=== PATIENT | male | born 1990 | race Caucasian/White ===

== ENCOUNTER 2025-04-17 01:26 | Emergency (ER) | payer MEDICAID, SELFPAY ==
[2025-04-17 01:27] VITALS: BP 118/73; PULSE 78; RESP 15; TEMP 36.4; O2SAT 98; BMI 24.0
--- NOTE | 2025-04-17 01:39 | EKG12_ITS ---
Test Reason : DYSRHYTHMIA Blood Pressure : */* mmHG Vent. Rate : 67 BPM Atrial Rate : 67 BPM P-R Int : 152 ms QRS Dur : 92 ms QT Int : 396 ms P-R-T Axes : 79 54 53 degrees QTcB Int : 418 ms Normal sinus rhythm Normal ECG Confirmed by Denis Belle ([id number]), senior editor YOHANA PARKER ([id number]) on 04/26/2025 1:01:05 PM Referred By: Confirmed By: Denis Belle
--- NOTE | 2025-04-17 01:39 | CT_ITS ---
PROCEDURE: BRAIN/HEAD WITHOUT CONTRAST 04/17/2025 REASON FOR EXAM: SYNCOPE TECHNIQUE: Head CT without intravenous contrast. Coronal and Sagittal reconstruction series were provided. One or more dose reduction techniques were used (e.g., Automated exposure control, adjustment of the mA and/or kV according to patient size, use of iterative reconstruction technique. RADIATION DOSE SUMMARY: CTDlvol: 44.99 mGy DLP: 812.98 mGycm COMPARISON: None available FINDINGS: No intracranial hemorrhage, mass effect or calvarial fracture. The ventricles are within limits and midline. The haro-white differentiation appears preserved. Complete opacification of the left maxillary sinus with opacified adjacent left ethmoid air cells and ostium. Mild mucoperiosteal thickening right sphenoid sinus with possible small fluid level. The other paranasal sinuses, mastoids and orbits appear within limits. CT/Brain/Head without Contrast IMPRESSION: No intracranial hemorrhage, mass effect or calvarial fracture. Paranasal sinus disease and possible sinusitis as above. Reading Location: [id number]
--- NOTE | 2025-04-17 01:39 | CT_ITS ---
PROCEDURE: SPINE CERVICAL WITHOUT CONTRAS 04/17/2025 REASON FOR EXAM: TRAUMA TECHNIQUE: Cervical spine CT without contrast. Coronal and Sagittal reconstruction series were provided. One or more dose reduction techniques were used (e.g., Automated exposure control, adjustment of the mA and/or kV according to patient size, use of iterative reconstruction technique RADIATION DOSE SUMMARY: CTDlvol: 15.41 mGy DLP: 304.93 mGycm COMPARISON: None available FINDINGS: No fracture or malalignment. No prevertebral soft tissue swelling. The disc spaces appear within limits. Mild appearing right-sided facet degenerative changes C3-4 and C7-T1. Visualized apices appear clear. 8 mm low-density cystic focus at the thyroid isthmus, nonspecific. CT/Spine Cervical without Contras IMPRESSION: No fracture or malalignment. Mild appearing right-sided facet degenerative changes C3-4 and C7-T1. Reading Location: [id number]
[2025-04-17] MEDS: 0.9% Normal Saline (1000mL) 1,000 ML 999 ML IV (01:43)
[2025-04-17 01:48] LABS: Absolute Lymphocyte Count 3.85 X10^3/uL (0.83-4.51); Absolute Neutrophil Count 4.8 X10^3/uL (2.0-7.7); Basophil# 0.06 X10^3/uL; Basophil% 0.6 % (0-1); Eosinophil# 0.38 X10^3/uL; Eosinophils% 3.7 % (0-5); Hematocrit 42.3 % (40-54); Hemoglobin 13.9 g/dL (13.0-16.5); Lymphocyte # 3.85 X10^3/ul (0.83-4.51); Lymphocyte % 37.5 % (19-41); Mean Corp Hgb Conc 32.9 g/dL (32-36); Mean Corpuscular Hgb 30.1 pg (27.0-32.0); Mean Corpuscular Volume 91.6 fL (80-94); Mean Platelet Vol. 9.3 fl (6.2-12.0); Monocyte# 1.11 X10^3/uL; Monocyte% 10.8 % (0-10); NRBC Flagged by Analyzer 0 % (0-5); Neutrophil # 4.84 X10^3/uL (2.7-7.7); Platelet Count 266 K/mm3 (150-450); RBC Distribution Width CV 13.2 % (11.6-14.6); RBC Distribution Width SD 44.3 fl (35.1-43.9); Red Blood Count 4.62 M/mm3 (4.6-6.2); White Blood Count 10.3 K/mm3 (4.4-11.0)
[2025-04-17] MEDS: Ondansetron 4 MG/2 ML Vial IV (01:51)
--- NOTE | 2025-04-17 01:56 | EX.ED.DYSGE1 ---
HPI History of Present Illness Chief Complaint: Syncope Narrative Narrative: Chief complaint and HPI: Syncope. 34-year-old male with past medical history of anxiety, schizoaffective, PTSD presents for evaluation of syncope. Patient states that he donated plasma yesterday morning. He states since then he felt unwell. Including nausea. He does admit to a poor diet today. States he is drinking a lot of sugary drinks and ate multiple ice cream sandwiches. Has had little water. He states he then developed nonbloody emesis and diarrhea. States he went into the gas station where he felt lightheaded and that he needed to use the bathroom. While talking to the employee he passed out. States he was able to ambulate off the ground into the bathroom where he had diarrhea and passed out again. Significant other witnessed the passing out on the toilet in which she protected his head and neck. He denies any blood in the diarrhea. Denies any fever, chills, shortness of breath, chest pain, dysuria. States his stomach is mildly uncomfortable. Review of systems: See HPI Medications: As listed on the chart Allergies: As listed on the chart PFSH: Per chart Vital signs: As listed on the chart. Reviewed. Physical exam: Gen: A&O x3, NAD Head: Normocephalic, atraumatic Eyes: No sclera icterus, conjunctiva clear, PERRL, EOMI ENT: TMs clear BL, moist mucous membranes, face atraumatic without tenderness Neck: Trachea midline, No JVD, no midline spinal, no bony step-off, mild tenderness to palpation of the bilateral paraspinal musculature of the cervical spine CV: RRR, no murmurs, no chest wall TTP Resp: Lungs CTA BL, no w/r/c GI: Abd soft, non-distended, non-tender, no r/r/g : No CVA tenderness Musc: Full ROM, no deformity, no spinal TTP, no deb step-offs Skin: Warm, dry, intact Neuro: Alert, oriented, grossly intact, sensation intact, GCS 15 Psych: Cooperative, appropriate mood and affect [facility] Medical History (Updated 04/17/25 @ 01:33 by Erika Thomas) ADHD Depression Anxiety Schizophrenia Home Medications ?Medication ?Instructions ?Recorded ?Last Taken ?Type aripiprazole 5 mg tablet (Abilify) 5 mg PO DAILY 04/17/25 Unknown History quetiapine 50 mg tablet (Seroquel) 50 mg PO QHS 04/17/25 Unknown History Allergy/AdvReac Type Severity Reaction Status Date / Time No Known Allergies Allergy Verified 04/17/25 01:34 Social History Smoking Status: Unknown if ever smoked EXAM Physical Exam Const Vital Signs: 04/17/25 01:27 04/17/25 01:34 04/17/25 03:26 Temperature 97.6 F L Temperature Source Oral Pulse Rate 78 76 Respiratory Rate 15 16 Respiratory Effort Normal Respiratory Pattern Normal Blood Pressure 118/73 Blood Pressure Mean 88 Pulse Ox 98 97 Oxygen Delivery Method Room Air Room Air 04/17/25 04:54 Temperature Temperature Source Pulse Rate 77 Respiratory Rate 17 Respiratory Effort Respiratory Pattern Blood Pressure Blood Pressure Mean Pulse Ox Oxygen Delivery Method MDM MDM MDM Narrative Medical decision making narrative: 34-year-old male with past medical history of anxiety, schizoaffective, PTSD presents for evaluation of syncope. Patient donated plasma yesterday morning and since then has been endorsing nausea, diarrhea, lightheadedness. Differential diagnosis includes but is not limited to viral gastroenteritis, dehydration, anemia, electrolyte abnormality, vasovagal syncope, closed head injury, cervical fracture, acute intracranial bleed suspect less likely ACS or arrhythmia. NS bolus, Zofran ordered for symptoms. Laboratory workup ordered including CT head and cervical spine. Although patient is having nausea, emesis, diarrhea. I do not think any imaging of the abdomen is needed at this time. EKG and chest x-ray reviewed see below. CBC without leukocytosis or anemia. CMP shows renal insufficiency with a creatinine of 1.28. I do not have previous EKG to compare to. Patient is receiving fluids. No transaminitis. Lipase unremarkable. CT of the head without acute traumatic injury. Patient has possible sinusitis however this does not fit clinically therefore it will not be treated. CT of the cervical spine shows no traumatic injury. Patient does have some degenerative changes. UA negative for UTI. At this point in time, I suspect that patient's syncopal episode was secondary to dehydration with vasovagal syncope. Will give another NS bolus and repeat BMP. After second liter bolus, repeat BMP was obtained and shows normal creatinine. Patient is ambulated in the emergency department without syncope or symptoms. Patient is stable to discharge home. EKG: Interpreted by me/EM physician: EKG shows normal sinus rhythm without any acute ischemic changes. Heart rate 67. Diagnostic: Interpreted by me/EM physician: Chest x-ray without pneumonia, effusion, cardiomegaly, pneumothorax. Radiology in agreement. Impression: 1. Dehydration 2. Vasovagal syncope 3. Emesis and diarrhea Lab Data Labs: Laboratory Results - last 24 hr 04/17/25 04/17/25 04/17/25 01:40 02:52 04:25 WBC 10.3 RBC 4.62 Hgb 13.9 Hct 42.3 MCV 91.6 MCH 30.1 MCHC 32.9 RDW Std Deviation 44.3 H RDW Coeff of Musa 13.2 Plt Count 266 MPV 9.3 Immature Gran % (Auto) 0.400 Neut % (Auto) 47.0 Lymph % (Auto) 37.5 Humphreys % (Auto) 10.8 H Eos % (Auto) 3.7 Baso % (Auto) 0.6 Absolute Neuts (auto) 4.8 Absolute Lymphs (auto) 3.85 Nucleated RBC % 0 Sodium 141 141 Potassium 3.4 3.9 Chloride 105 109 H Carbon Dioxide 26.8 24.8 Anion Gap 9 7 BUN 15 14 Creatinine 1.28 H 1.10 Estim Creat Clear Calc 84.97 98.88 Est GFR (MDRD) Non-Af 74 89 BUN/Creatinine Ratio 11.3 12.8 Glucose 93 147 H Calcium 8.7 7.9 Total Bilirubin 0.23 AST 17 ALT 17 Alkaline Phosphatase 43 Troponin T High Sens 16 Total Protein 5.4 L Albumin 3.8 Globulin 1.6 L Albumin/Globulin Ratio 2.4 Lipase 36 Urine Color Yellow Urine Clarity Clear Urine pH 5.0 Ur Specific Chloe 1.025 Urine Protein 30 H Urine Glucose (UA) Normal Urine Ketones Negative Urine Occult Blood 10 H Urine Nitrite Negative Urine Bilirubin Negative Urine Urobilinogen Normal Ur Leukocyte Esterase Negative Urine RBC 5-10 SEEN Urine WBC 0-5 SEEN Ur Squamous Epith Cells 0 SEEN Urine Bacteria 1+ Urine Mucus 2+ Radiography Diagnostic Testing: Clinical Impression(s) from Imaging Studies Brain CT 04/17/25 01:39 IMPRESSION: No intracranial hemorrhage, mass effect or calvarial fracture. Paranasal sinus disease and possible sinusitis as above. Reading Location: [id number] Cervical Spine CT 04/17/25 01:39 IMPRESSION: No fracture or malalignment. Mild appearing right-sided facet degenerative changes C3-4 and C7-T1. Reading Location: [facility] Chest X-Ray 04/17/25 02:05 IMPRESSION: No evidence of acute disease. Reading Location: [facility] Discharge Plan Triage Chief Complaint: Syncope ED Provider: Cole Manning Dx/Rx/DC Orders Prescriptions: No Action quetiapine [Seroquel] 50 mg tablet 50 mg PO QHS aripiprazole [Abilify] 5 mg tablet 5 mg PO DAILY Primary Care Provider: Iain Westbrook Referrals: Iain Westbrook DO [Primary Care Provider] - Print Language: Indonesian
--- NOTE | 2025-04-17 02:05 | RAD_ITS ---
PROCEDURE: CHEST PA AND LATERAL 04/17/2025 REASON FOR EXAM: SYNCOPE TECHNIQUE: Frontal and lateral views of the chest. COMPARISON: None available FINDINGS: The lungs appear clear. Pulmonary vascularity appears within limits. No pleural effusion. The cardiac and mediastinal contours appear within limits. Possible old mid left clavicle fracture deformity. RAD/Chest PA and Lateral IMPRESSION: No evidence of acute disease. Reading Location: [id number]
[2025-04-17 02:14] LABS: ALB/GLOB Ratio 2.4 RATIO (0.9-2.4); AST(SGOT) 17 U/L (<=37); Alanine Aminotransfer ALT/SGPT 17 U/L (<=46); Albumin, Serum 3.8 g/dL (3.5-5.0); Alkaline Phosphatase 43 U/L (40-129); Anion Gap 9 (5-15); BUN 15 mg/dL (4-19); BUN/Creat Ratio 11.3 RATIO (10-20); Calcium,Total 8.7 mg/dL (7.6-11.0); Carbon Dioxide 26.8 mmol/L (21.0-32.0); Chloride 105 mmol/L (98-108); Creatinine, Serum 1.28 mg/dL (0.70-1.20); EST Glomerular Filtration Rate 74 (>60); Estimated Creatinine Clearance 84.97 ml/min (50-250); Globulin 1.6 g/dL (2.2-4.2); Glucose 93 mg/dL (70-99); Lipase 36 U/L (13-75); Potassium 3.4 mmol/L (3.3-5.1); Protein, Total 5.4 g/dL (5.9-8.4); Sodium Level 141 mmol/L (133-145); Total Bilirubin 0.23 mg/dL (0.00-1.30); Troponin T High Sensitivity 16 ng/L (<=22)
[2025-04-17 03:05] LABS: Squamous Epithelial Cells - UA 0 SEEN /hpf (0-5)
[2025-04-17 03:26] VITALS: PULSE 76; RESP 16; O2SAT 97
[2025-04-17] MEDS: 0.9% Normal Saline (1000mL) 1,000 ML 1000 ML IV (03:30)
[2025-04-17 03:51] LABS: Color, Urine Yellow (Yellow); Glucose, Dipstick Normal (Normal); Ketone-Dipstick Negative (Negative); Leukocyte Esterase-Dipstick Negative /ul (Negative); Nitrite-Dipstick Negative (Negative); Occult Blood-Urine 10 /ul (Negative); Protein-Dipstick 30 mg/dl (Negative); Specific Gravity, Urine 1.025 (1.002-1.030); Urine Bilirubin Dipstick Negative (Negative); Urine Clarity Clear (Clear); Urine Urobilinogen Normal (Normal)
[2025-04-17 04:04] LABS: Bacteria 1+ /hpf (None Seen); Mucous, Urine 2+ /hpf (<or=2+); Red Blood Cells-Urine 5-10 SEEN /hpf (0-5); White Blood Cells 0-5 SEEN /hpf (0-5)
[2025-04-17 04:54] VITALS: PULSE 77; RESP 17
[2025-04-17 05:12] LABS: Anion Gap 7 (5-15); BUN 14 mg/dL (4-19); BUN/Creat Ratio 12.8 RATIO (10-20); Calcium,Total 7.9 mg/dL (7.6-11.0); Carbon Dioxide 24.8 mmol/L (21.0-32.0); Chloride 109 mmol/L (98-108); EST Glomerular Filtration Rate 89 (>60); Estimated Creatinine Clearance 98.88 ml/min (50-250); Glucose 147 mg/dL (70-99); Potassium 3.9 mmol/L (3.3-5.1); Sodium Level 141 mmol/L (133-145)
[2025-04-17 05:35] VITALS: BP 102/64; PULSE 81; RESP 21; TEMP 36.4; O2SAT 99
== END 2025-04-17 05:38 | disposition home or self-care (01) ==
PROVIDERS: Emergency Provider Surgery; Visit Provider Surgery
DX: E86.0 Dehydration (principal); F20.9 Schizophrenia, unspecified; R55 Syncope and collapse; R19.7 Diarrhea, unspecified
CPT/HCPCS: 70450; 71046; 72125; 80048; 80053; 81001; 83690; 84484; 85025; 93005; 96361; 96374; 96376; 99283; A4216; J2405